=== PATIENT | male | born 1930 ===

== ENCOUNTER 2017-05-08 17:09 | Emergency (ER) | payer MEDICARE, OTHER ==
[~2017-05-08] VITALS: Ht 170.2 cm; Wt 69.0 kg
[~2017-05-08 17:09] MED LIST: ACCU-CHEK AVIV1 EAC1; ACCU-CHEK1 EACH; ASPI325 PO; BUME2; Bactrim Ds Tab1 EACH PO; CLON.3; CLON.3 PO; CLOP75 PO; DOCSEN PO; FINA5 PO; FURO40; FURO40 PO; HYDR1TAB94 PO; Norco 10-325 T1 EACH PO; POTCHL20ER PO; PRED10 PO; Pyridium100 MG PO; SULTRIDS PO; TAMS.4ER; TAMS.4ER PO
[2017-05-08 19:39] LABS: Source, Urine Catheter
[2017-05-08 20:04] LABS: Bilirubin, Urine Neg (Neg); Blood, Urine 4+ (Neg); Glucose Qualitative, Urine Neg (Neg); Ketones, Urine Neg (Neg); Leukocyte Esterase, Urine 3+ (Neg); Nitrite, Urine Neg (Neg); Protein, Urine 2+ (Neg); Urobilinogen, Urine NORM (Normal)
[2017-05-08 20:19] LABS: Appearance, Urine Hazy (Clear); Color, Urine Yellow (P-Yellow)
[2017-05-08 20:20] LABS: Red Blood Cells, Urine TNTC /hpf (0-2); White Blood Cells, Urine TNTC /hpf (0-5)
[2017-05-08 20:21] LABS: Bacteria Many /hpf; Squamous Epithelial Cells Few /hpf (Few)
== END 2017-05-08 19:40 | disposition home or self-care (01) ==
LOC: ER 17:09
PROVIDERS: Physician Assistant
DX: T83.038A Leakage of other urinary catheter, initial encounter (principal); Z88.0 Allergy status to penicillin; Z88.1 Allergy status to other antibiotic agents; Z91.09 Other allergy status, other than to drugs and biological substances; Z88.8 Allergy status to other drugs, medicaments and biological substances; Z79.899 Other long term (current) drug therapy; Z79.82 Long term (current) use of aspirin; Z79.52 Long term (current) use of systemic steroids; Z90.89 Acquired absence of other organs; Z90.49 Acquired absence of other specified parts of digestive tract; Z87.891 Personal history of nicotine dependence
CPT/HCPCS: 81001; 87077; 87086; 87186; 99283

== ENCOUNTER 2017-05-14 19:49 | Emergency (ER) | payer MEDICARE, OTHER ==
[~2017-05-14] VITALS: Ht 170.2 cm; Wt 69.0 kg
[2017-05-14] MEDS ORDERED: Macrodantin100 MG PO (21:45)
== END 2017-05-14 22:03 | disposition home or self-care (01) ==
LOC: ER 19:49
DX: T83.83XA Hemorrhage due to genitourinary prosthetic devices, implants and grafts, initial encounter (principal); Z88.0 Allergy status to penicillin; Z88.1 Allergy status to other antibiotic agents; Z91.09 Other allergy status, other than to drugs and biological substances; Z88.8 Allergy status to other drugs, medicaments and biological substances; Z79.899 Other long term (current) drug therapy; Z79.82 Long term (current) use of aspirin; I10 Essential (primary) hypertension; Z90.49 Acquired absence of other specified parts of digestive tract; Z87.891 Personal history of nicotine dependence
CPT/HCPCS: 51102; 51702; 51798; 99282; C2627

== ENCOUNTER 2017-05-29 15:25 | Emergency (ER) | payer MEDICARE, OTHER ==
[~2017-05-29] VITALS: Ht 170.2 cm; Wt 69.0 kg
[~2017-05-29 15:25] MED LIST changes: +Macrodantin100 MG PO
== END 2017-05-29 17:14 | disposition home or self-care (01) ==
LOC: ER 15:25
DX: T83.091A Other mechanical complication of indwelling urethral catheter, initial encounter (principal); N32.0 Bladder-neck obstruction; I10 Essential (primary) hypertension; Z90.89 Acquired absence of other organs; Z90.49 Acquired absence of other specified parts of digestive tract; Z90.5 Acquired absence of kidney
CPT/HCPCS: 51702; 81000; 99282

== ENCOUNTER 2017-06-12 10:27 | Emergency (ER) | payer MEDICARE, OTHER ==
[~2017-06-12] VITALS: Ht 167.6 cm; Wt 69.0 kg
[2017-06-12 11:17] LABS: Source, Urine Catheter
[2017-06-12 11:25] LABS: Bilirubin, Urine Neg (Neg); Blood, Urine 5+ (Neg); Glucose Qualitative, Urine Neg (Neg); Ketones, Urine Neg (Neg); Leukocyte Esterase, Urine 2+ (Neg); Nitrite, Urine Neg (Neg); Protein, Urine 2+ (Neg); Specific Gravity, Urine 1.005 (1.003-1.022); Urobilinogen, Urine NORM (Normal)
[2017-06-12 11:33] LABS: Appearance, Urine Cloudy (Clear); Color, Urine Red (P-Yellow); Red Blood Cells, Urine TNTC /hpf (0-2); White Blood Cells, Urine 0-2 /hpf (0-5)
[2017-06-12 11:34] LABS: Bacteria Few /hpf; Squamous Epithelial Cells Not Seen /hpf (Few)
== END 2017-06-12 12:13 | disposition home or self-care (01) ==
LOC: ER 10:27
PROVIDERS: Emergency Medicine
DX: T83.091A Other mechanical complication of indwelling urethral catheter, initial encounter (principal); R31.0 Gross hematuria; I10 Essential (primary) hypertension; Z88.0 Allergy status to penicillin; Z88.8 Allergy status to other drugs, medicaments and biological substances; Z88.1 Allergy status to other antibiotic agents; Z91.09 Other allergy status, other than to drugs and biological substances; Z79.899 Other long term (current) drug therapy; Z79.82 Long term (current) use of aspirin; Z90.49 Acquired absence of other specified parts of digestive tract; Z90.89 Acquired absence of other organs
CPT/HCPCS: 51702; 81001; 87086; 99283

== ENCOUNTER 2017-06-30 00:32 | Day surgery (SDC) | payer MEDICARE, OTHER | END 2017-06-30 11:00 | disposition home or self-care (01) | LOC: ATC 00:32 | DX: Z46.6 Encounter for fitting and adjustment of urinary device (principal); R33.9 Retention of urine, unspecified; I10 Essential (primary) hypertension; E11.9 Type 2 diabetes mellitus without complications; R60.0 Localized edema; Z79.899 Other long term (current) drug therapy; Z79.82 Long term (current) use of aspirin | CPT/HCPCS: 51700 ==

== ENCOUNTER 2017-07-01 01:58 | Emergency (ER) | payer MEDICARE, OTHER ==
[~2017-07-01] VITALS: Ht 170.2 cm; Wt 70.8 kg
[2017-07-01 03:38] LABS: Source, Urine Catheter
[2017-07-01 03:40] LABS: Bilirubin, Urine Neg (Neg); Blood, Urine 5+ (Neg); Glucose Qualitative, Urine Neg (Neg); Ketones, Urine Neg (Neg); Leukocyte Esterase, Urine 1+ (Neg); Nitrite, Urine Neg (Neg); Protein, Urine 2+ (Neg); Specific Gravity, Urine 1.015 (1.003-1.022); Urobilinogen, Urine NORM (Normal)
[2017-07-01 03:45] LABS: Appearance, Urine Hazy (Clear); Bacteria Rare /hpf; Color, Urine Yellow (P-Yellow); Red Blood Cells, Urine 50-100 /hpf (0-2); Squamous Epithelial Cells Not Seen /hpf (Few)
[2017-07-01 03:46] LABS: Amorphous Mod (0-Heavy)
== END 2017-07-01 04:40 | disposition home or self-care (01) ==
LOC: ER 01:58
PROVIDERS: Emergency Medicine
DX: T83.031A Leakage of indwelling urethral catheter, initial encounter (principal); Z88.0 Allergy status to penicillin; Z88.8 Allergy status to other drugs, medicaments and biological substances; Z88.1 Allergy status to other antibiotic agents; Z91.09 Other allergy status, other than to drugs and biological substances; Z79.899 Other long term (current) drug therapy; Z79.82 Long term (current) use of aspirin; Z79.52 Long term (current) use of systemic steroids; Z87.891 Personal history of nicotine dependence
CPT/HCPCS: 51702; 81001; 87086; 99283

== ENCOUNTER 2017-07-27 00:22 | Day surgery (SDC) | payer MEDICARE, OTHER | END 2017-07-27 10:35 | disposition home or self-care (01) | LOC: ATC 00:22 | DX: R33.9 Retention of urine, unspecified (principal); I10 Essential (primary) hypertension; E11.9 Type 2 diabetes mellitus without complications; R60.9 Edema, unspecified; Z87.891 Personal history of nicotine dependence | CPT/HCPCS: 51700; J1580 ==

== ENCOUNTER 2017-08-24 00:43 | Day surgery (SDC) | payer MEDICARE, OTHER | END 2017-08-24 10:36 | disposition home or self-care (01) | LOC: ATC 00:43 | DX: R33.9 Retention of urine, unspecified (principal); Z87.891 Personal history of nicotine dependence; I10 Essential (primary) hypertension; E11.9 Type 2 diabetes mellitus without complications | CPT/HCPCS: 51700; J1580 ==

== ENCOUNTER 2017-09-28 00:37 | Day surgery (SDC) | payer MEDICARE, OTHER | END 2017-09-28 10:52 | disposition home or self-care (01) | LOC: ATC 00:37 | DX: R33.9 Retention of urine, unspecified (principal); E11.9 Type 2 diabetes mellitus without complications; I10 Essential (primary) hypertension; R60.9 Edema, unspecified; Z87.891 Personal history of nicotine dependence | CPT/HCPCS: 51700; J1580 ==

== ENCOUNTER 2017-10-27 00:14 | Day surgery (SDC) | payer MEDICARE, OTHER | END 2017-10-27 10:41 | disposition home or self-care (01) | LOC: ATC 00:14 | DX: R33.9 Retention of urine, unspecified (principal) | CPT/HCPCS: 51702 ==

== ENCOUNTER 2018-01-04 00:11 | Day surgery (SDC) | payer MEDICARE, OTHER | END 2018-01-04 11:12 | disposition home or self-care (01) | LOC: ATC 00:11 | DX: R33.9 Retention of urine, unspecified (principal); I25.10 Atherosclerotic heart disease of native coronary artery without angina pectoris; E11.22 Type 2 diabetes mellitus with diabetic chronic kidney disease; I12.9 Hypertensive chronic kidney disease with stage 1 through stage 4 chronic kidney disease, or unspecified chronic kidney disease; N18.2 Chronic kidney disease, stage 2 (mild); E79.0 Hyperuricemia without signs of inflammatory arthritis and tophaceous disease; S81.801A Unspecified open wound, right lower leg, initial encounter; Z79.899 Other long term (current) drug therapy; Z87.891 Personal history of nicotine dependence | CPT/HCPCS: 51700 ==

== ENCOUNTER 2018-01-07 23:19 | Emergency (ER) | payer MEDICARE, OTHER ==
[~2018-01-07] VITALS: Ht 167.6 cm; Wt 66.7 kg
== END 2018-01-08 00:06 | disposition home or self-care (01) ==
LOC: ER 23:19
DX: T83.011A Breakdown (mechanical) of indwelling urethral catheter, initial encounter (principal); I10 Essential (primary) hypertension; Z88.0 Allergy status to penicillin; Z88.8 Allergy status to other drugs, medicaments and biological substances; Z88.1 Allergy status to other antibiotic agents; Z79.899 Other long term (current) drug therapy; Z79.82 Long term (current) use of aspirin; Z87.891 Personal history of nicotine dependence
CPT/HCPCS: 51702; 99282

== ENCOUNTER 2018-02-01 02:10 | Day surgery (SDC) | payer MEDICARE, OTHER ==
[2018-02-01] MEDS ORDERED: SULF500 PO (11:06)
== END 2018-02-01 11:35 | disposition home or self-care (01) ==
LOC: ATC 02:10
DX: N40.1 Benign prostatic hyperplasia with lower urinary tract symptoms (principal); R33.8 Other retention of urine; Z87.891 Personal history of nicotine dependence
CPT/HCPCS: 51700; J1580

== ENCOUNTER 2018-05-04 00:07 | Day surgery (SDC) | payer MEDICARE ==
[~2018-05-04 00:07] MED LIST changes: +SULF500 PO
[2018-05-04] MEDS ORDERED: Gentamicin S40 MG/ML BLADIN (11:04)
[2018-05-04] MEDS ORDERED: Xylocaine5 M1 EXT (11:08)
--- NOTE | 2018-05-04 11:11 | NUR ---
PT ARRIVED STATING HE HAD BEEN HAVING CP AND IRRITATION ON BLE, BUE AND NECK AND BACK. PT REFUSED TO GO TO THE ER, VS NOTED WNL. EXTREMETIES NOTED TO HAVE SCRATCH LIKE ABBRATIONS. ENCOURAGED PT TO GO TO ER, URGENT CARE OR TO CALL HIS MD BUT PT STS HE WILL WAIT UNTIL HIS APPT WITH DR MUÑOZ ON May. PT STS HE FELL RECENTLY AND THAT ONE ABBRATION ON HIS MALIKA IS A HEALING SKIN TEAR. PT DID NOT APPEAR IN DISTRESS. CONTINUED TO ENCOURAGE TO F/U WITH ER OR HIS PCP IF SYMPTOMS CONTINUE OR WORSEN, PT VERBALIZED THAT HE WOULD. ENGLAND CATHETER CHANGE WAS WITHOUT COMPLICATION. MAINTAINED STERILE TECHNIQUE, INSTILLED GENTAMYCIN FOR 20 MINUTES, UNCLAMPED CATHETER WHEN IT BEGAN TO LEAK FROM HIS URETHRA. CONTINUED TO DRAIN CLEAR YELLOW URINE INTO THE NEW CATHETER BAG. PT AMBULATED INDEPENDENTLY FROM [facility]. NO FURTHER C/O CP.
== END 2018-05-04 11:11 | disposition home or self-care (01) ==
LOC: ATC 00:07
DX: N40.1 Benign prostatic hyperplasia with lower urinary tract symptoms (principal); R33.9 Retention of urine, unspecified; N13.8 Other obstructive and reflux uropathy
CPT/HCPCS: 51700; J1580

== ENCOUNTER 2018-06-07 00:15 | Day surgery (SDC) | payer MEDICARE, OTHER ==
[~2018-06-07 00:15] MED LIST changes: +Gentamicin S40 MG/ML BLADIN; +Xylocaine5 M1 EXT
--- NOTE | 2018-06-07 11:05 | NUR ---
PT HAD BLOOD TINGED URINE OUT ONCE NEW ENGLAND WAS PLACED, PT STATES THIS IS NORMAL.
--- NOTE | 2018-06-07 11:09 | NUR ---
PT HAD APPROXIMATELY 150 ML OF CLOUDY URINE IN BAG.
--- NOTE | 2018-06-07 11:51 | NUR ---
PT HAD GENT INSTILLED IN ENGLAND FOR 30 MINUTES, CLAMPED REMOVED AND URINE IS DRAINING INTO BAG APPEARS CLEAR AND DARK YELLOW.
== END 2018-06-07 11:38 | disposition home or self-care (01) ==
LOC: ATC 00:15
DX: N40.1 Benign prostatic hyperplasia with lower urinary tract symptoms (principal); R33.9 Retention of urine, unspecified; N13.8 Other obstructive and reflux uropathy
CPT/HCPCS: 51700; J1580

== ENCOUNTER 2018-07-05 00:03 | Day surgery (SDC) | payer MEDICARE, OTHER | END 2018-07-05 10:15 | disposition home or self-care (01) | LOC: ATC 00:03 | DX: N40.1 Benign prostatic hyperplasia with lower urinary tract symptoms (principal); R33.8 Other retention of urine; I10 Essential (primary) hypertension; Z87.891 Personal history of nicotine dependence | CPT/HCPCS: 51700 ==

== ENCOUNTER 2018-08-02 00:22 | Day surgery (SDC) | payer MEDICARE ==
--- NOTE | 2018-08-02 10:30 | NUR ---
URINE COLOR IS DARK BROWN. PT HAS URINE CHEUNG ON R UPPER THIGH AND SCROTUM.
--- NOTE | 2018-08-02 11:06 | NUR ---
GENTAMYACIN LEFT IN CATHETER FOR 30 MINUTES. CATHETER BAG PLACED ON ENGLAND WITH LIGHT PINK FLUID BACK.
== END 2018-08-02 11:00 | disposition home or self-care (01) ==
LOC: ATC 00:22
DX: R33.9 Retention of urine, unspecified (principal); I10 Essential (primary) hypertension; Z88.0 Allergy status to penicillin; Z88.1 Allergy status to other antibiotic agents; Z88.8 Allergy status to other drugs, medicaments and biological substances; Z91.041 Radiographic dye allergy status; Z79.899 Other long term (current) drug therapy; Z79.82 Long term (current) use of aspirin; Z87.891 Personal history of nicotine dependence; Z98.890 Other specified postprocedural states
CPT/HCPCS: 51700

== ENCOUNTER 2018-08-30 00:16 | Day surgery (SDC) | payer MEDICARE, OTHER | END 2018-08-30 10:25 | disposition home or self-care (01) | LOC: ATC 00:16 | DX: R33.9 Retention of urine, unspecified (principal); N40.0 Benign prostatic hyperplasia without lower urinary tract symptoms; I10 Essential (primary) hypertension; Z88.0 Allergy status to penicillin; Z88.1 Allergy status to other antibiotic agents; Z88.8 Allergy status to other drugs, medicaments and biological substances; Z91.041 Radiographic dye allergy status; Z79.899 Other long term (current) drug therapy; Z79.82 Long term (current) use of aspirin; Z87.891 Personal history of nicotine dependence | CPT/HCPCS: 51702; J1580 ==

== ENCOUNTER 2018-09-29 00:17 | Day surgery (SDC) | payer MEDICARE ==
--- NOTE | 2018-09-29 10:27 | NUR ---
PT HAD ENGLAND INSERTION PER STERILE PROTOCOL PT WAS DISCHARGED AT 1010
== END 2018-09-29 10:10 | disposition home or self-care (01) ==
LOC: ATC 00:17
DX: R33.9 Retention of urine, unspecified (principal); I10 Essential (primary) hypertension; Z88.0 Allergy status to penicillin; Z88.1 Allergy status to other antibiotic agents; Z88.8 Allergy status to other drugs, medicaments and biological substances; Z91.041 Radiographic dye allergy status; Z87.891 Personal history of nicotine dependence
CPT/HCPCS: 51702

== ENCOUNTER 2018-11-03 00:16 | Day surgery (SDC) | payer MEDICARE ==
--- NOTE | 2018-11-03 10:30 | NUR ---
PT REPORTS HE LOST HEARING IN BOTH EARS, LEFT SIDE "4 DAYS AGO". PT REPORTS HE THOUGHT HE POKED AN QTIP TOO FAR IN HIS EARS. STATES HE HAS AN APPT WITH HIS DR ON 05/25/18
--- NOTE | 2018-11-03 17:44 | NUR ---
25cc YELLOW URINE NOTED DRAINING IN TUBING AFTER PLACEMENT. VELCRO LEG STRAP IN PLACE, REFUSED OFFER OF NEW ONE. PT LEFT UNIT IN STABLE CONDITION.
== END 2018-11-03 10:20 | disposition home or self-care (01) ==
LOC: ATC 00:16
DX: R33.9 Retention of urine, unspecified (principal); I10 Essential (primary) hypertension; Z88.0 Allergy status to penicillin; Z88.1 Allergy status to other antibiotic agents; Z88.8 Allergy status to other drugs, medicaments and biological substances; Z91.041 Radiographic dye allergy status; Z79.899 Other long term (current) drug therapy; Z79.82 Long term (current) use of aspirin; Z79.52 Long term (current) use of systemic steroids; Z87.891 Personal history of nicotine dependence
CPT/HCPCS: 51702

== ENCOUNTER 2018-12-01 02:24 | Day surgery (SDC) | payer MEDICARE | END 2018-12-01 10:05 | disposition home or self-care (01) | LOC: ATC 02:24 | DX: T83.098A Other mechanical complication of other urinary catheter, initial encounter (principal); R33.9 Retention of urine, unspecified; I10 Essential (primary) hypertension; N40.0 Benign prostatic hyperplasia without lower urinary tract symptoms; Z88.0 Allergy status to penicillin; Z88.8 Allergy status to other drugs, medicaments and biological substances; Z88.1 Allergy status to other antibiotic agents; Z91.041 Radiographic dye allergy status; Z79.899 Other long term (current) drug therapy; Z79.82 Long term (current) use of aspirin; Z79.52 Long term (current) use of systemic steroids; Z87.891 Personal history of nicotine dependence | CPT/HCPCS: 51702 ==

== ENCOUNTER 2018-12-17 23:05 | Emergency (ER) | payer MEDICARE ==
[~2018-12-17] VITALS: Ht 167.6 cm; Wt 68.0 kg
[2018-12-18 00:58] LABS: Source, Urine Catheter
[2018-12-18 01:00] LABS: Bilirubin, Urine Neg (Neg); Blood, Urine 5+ (Neg); Glucose Qualitative, Urine Neg (Neg); Ketones, Urine Neg (Neg); Leukocyte Esterase, Urine 2+ (Neg); Nitrite, Urine Neg (Neg); Protein, Urine 2+ (Neg); Urobilinogen, Urine NORM (Normal)
[2018-12-18 01:07] LABS: Appearance, Urine Hazy (Clear); Color, Urine Yellow (P-Yellow)
[2018-12-18 01:08] LABS: Bacteria Mod /hpf; Red Blood Cells, Urine TNTC /hpf (0-2); Squamous Epithelial Cells Not Seen /hpf (Few)
== END 2018-12-18 00:50 | disposition home or self-care (01) ==
LOC: ER 23:05
PROVIDERS: Physician Assistant
DX: T83.098A Other mechanical complication of other urinary catheter, initial encounter (principal); Z88.1 Allergy status to other antibiotic agents; Z88.0 Allergy status to penicillin; Z88.8 Allergy status to other drugs, medicaments and biological substances; Z79.82 Long term (current) use of aspirin; Z79.899 Other long term (current) drug therapy; Z87.891 Personal history of nicotine dependence
CPT/HCPCS: 51702; 81001; 87077; 87086; 87147; 87186; 99283

== ENCOUNTER 2019-02-02 01:06 | Day surgery (SDC) | payer MEDICARE | END 2019-02-02 10:58 | disposition home or self-care (01) | LOC: ATC 01:06 | DX: N40.1 Benign prostatic hyperplasia with lower urinary tract symptoms (principal); R33.8 Other retention of urine; I10 Essential (primary) hypertension; Z88.0 Allergy status to penicillin; Z88.8 Allergy status to other drugs, medicaments and biological substances; Z88.1 Allergy status to other antibiotic agents; Z91.09 Other allergy status, other than to drugs and biological substances; Z79.899 Other long term (current) drug therapy; Z79.82 Long term (current) use of aspirin; Z87.891 Personal history of nicotine dependence | CPT/HCPCS: 51702 ==

== ENCOUNTER 2019-03-02 00:39 | Day surgery (SDC) | payer MEDICARE | END 2019-03-02 09:40 | disposition home or self-care (01) | LOC: ATC 00:39 | DX: N40.1 Benign prostatic hyperplasia with lower urinary tract symptoms (principal); R33.8 Other retention of urine; Z88.0 Allergy status to penicillin; Z88.8 Allergy status to other drugs, medicaments and biological substances; Z88.1 Allergy status to other antibiotic agents; Z88.3 Allergy status to other anti-infective agents; Z91.041 Radiographic dye allergy status; Z79.82 Long term (current) use of aspirin; Z79.899 Other long term (current) drug therapy; Z87.891 Personal history of nicotine dependence | CPT/HCPCS: 51702 ==

== ENCOUNTER 2019-03-30 00:23 | Day surgery (SDC) | payer MEDICARE ==
--- NOTE | 2019-03-30 10:03 | NUR ---
HTN NOTIFIED TUSHAR WALTON, AT DR MUÑOZ OFFICE RE. HTN. INFORMED PT THAT DR MUÑOZ CAN SEE HIM TODAY BUT PT REFUSES. HE ALSO REFUSES TO GO TO ER. PT HAS CAREGIVER PRESENT. PT AND CAREGIVER INSTRUCTED TO CALL 911 OR GO TO ER IF S/S OF STROKE OR [place] ARE PRESENT. PT AND CG VERBALIZED UNDERSTANDING. CATHETER CHANGED W/O PROBLEMS. PT TOLERATED WITH MINIMAL PAIN.
== END 2019-03-30 10:05 | disposition home or self-care (01) ==
LOC: ATC 00:23
DX: Z43.6 Encounter for attention to other artificial openings of urinary tract (principal); N40.1 Benign prostatic hyperplasia with lower urinary tract symptoms; R33.8 Other retention of urine; I10 Essential (primary) hypertension; Z88.0 Allergy status to penicillin; Z88.1 Allergy status to other antibiotic agents; Z88.8 Allergy status to other drugs, medicaments and biological substances; Z91.041 Radiographic dye allergy status; Z79.82 Long term (current) use of aspirin; Z79.52 Long term (current) use of systemic steroids; Z79.899 Other long term (current) drug therapy; Z87.891 Personal history of nicotine dependence
CPT/HCPCS: 51702

== ENCOUNTER 2019-05-04 02:12 | Day surgery (SDC) | payer MEDICARE | END 2019-05-04 09:40 | disposition home or self-care (01) | LOC: ATC 02:12 | DX: Z46.6 Encounter for fitting and adjustment of urinary device (principal); N40.1 Benign prostatic hyperplasia with lower urinary tract symptoms; R33.8 Other retention of urine; I10 Essential (primary) hypertension; Z90.49 Acquired absence of other specified parts of digestive tract; Z87.891 Personal history of nicotine dependence; Z79.82 Long term (current) use of aspirin; Z79.899 Other long term (current) drug therapy; Z88.0 Allergy status to penicillin; Z88.1 Allergy status to other antibiotic agents; Z88.8 Allergy status to other drugs, medicaments and biological substances; Z91.041 Radiographic dye allergy status | CPT/HCPCS: 51702 ==

== ENCOUNTER 2019-09-28 10:37 | Emergency (ER) | payer MEDICARE ==
[~2019-09-28] VITALS: Ht 170.2 cm; Wt 65.8 kg
[2019-09-28 11:24] LABS: Source, Urine Catheter
[2019-09-28 11:27] LABS: Bilirubin, Urine Neg (Neg); Blood, Urine 5+ (Neg); Glucose Qualitative, Urine Neg (Neg); Ketones, Urine Neg (Neg); Nitrite, Urine Neg (Neg); Protein, Urine 3+ (Neg); Urobilinogen, Urine NORM (Normal)
[2019-09-28 11:35] LABS: Leukocyte Esterase, Urine Neg (Neg)
[2019-09-28 11:43] LABS: Appearance, Urine Bloody (Clear); Color, Urine Red (P-Yellow)
[2019-09-28 11:47] LABS: Bacteria Not Seen /hpf; Red Blood Cells, Urine TNTC /hpf (0-2); Squamous Epithelial Cells Not Seen /hpf (Few); White Blood Cells, Urine Not Seen /hpf (0-5)
== END 2019-09-28 12:17 | disposition home or self-care (01) ==
LOC: ER 10:37
PROVIDERS: Emergency Medicine
DX: R31.9 Hematuria, unspecified (principal); I10 Essential (primary) hypertension; Z88.0 Allergy status to penicillin; Z88.1 Allergy status to other antibiotic agents; Z91.09 Other allergy status, other than to drugs and biological substances; Z88.8 Allergy status to other drugs, medicaments and biological substances; Z79.82 Long term (current) use of aspirin; Z79.899 Other long term (current) drug therapy; N40.0 Benign prostatic hyperplasia without lower urinary tract symptoms
CPT/HCPCS: 81001; 99283